=== PATIENT | female | born 1950 | race Caucasian/White ===

== ENCOUNTER → 2020-10-23 13:24 | Outpatient (BNVA) | payer OTHER, SELFPAY | PROVIDERS: Family Provider Nurse Practitioner Family; PCP Nurse Practitioner Family; Visit Provider Nurse Practitioner Family | DX: Z20.828 Contact with and (suspected) exposure to other viral communicable diseases (principal); J06.9 Acute upper respiratory infection, unspecified | CPT/HCPCS: 87635 ==

== ENCOUNTER → 2020-12-10 11:56 | Outpatient (BNVA) | payer MEDICARE, OTHER, SELFPAY | PROVIDERS: Family Provider Nurse Practitioner Family; Visit Provider Family Medicine | DX: Z86.39 Personal history of other endocrine, nutritional and metabolic disease (principal) | CPT/HCPCS: 80053; 80061; 85025 ==

== ENCOUNTER → 2021-01-21 17:04 | Outpatient (BNVA) | payer MEDICARE, SELFPAY | PROVIDERS: Family Provider Nurse Practitioner Family; Visit Provider Family Medicine | DX: M25.541 Pain in joints of right hand (principal); M25.542 Pain in joints of left hand; M19.90 Unspecified osteoarthritis, unspecified site | CPT/HCPCS: 86038; 86431 ==

== ENCOUNTER 2021-02-15 14:35 | Outpatient (CLI) | payer MEDICARE, OTHER, SELFPAY ==
--- NOTE | 2021-02-15 14:38 | MM_ITS ---
WS: [id number] BILATERAL DIGITAL SCREENING MAMMOGRAPHY WITH CAD CLINICAL INFORMATION: SCREENING HISTORY: Screening mammogram. No current complaints. COMPARISON: TECHNIQUE: Bilateral CC and MLO views. FINDINGS: Scattered fibroglandular densities bilaterally. No suspicious focal mass, asymmetry, calcifications, or architectural distortion. No evidence of malignancy. MM/[place] [id number] IMPRESSION: BI-RADS: 1-Negative FOLLOW UP: 1 Year Follow-up Recommend return to annual screening mammography.
== END 2021-02-15 14:36 | disposition home or self-care (01) ==
PROVIDERS: PCP Family Medicine; Visit Provider Family Medicine
DX: Z12.31 Encounter for screening mammogram for malignant neoplasm of breast (principal)
CPT/HCPCS: 77067

== ENCOUNTER → 2021-07-01 11:42 | Outpatient (BNVA) | payer MEDICARE, OTHER, SELFPAY | PROVIDERS: PCP Family Medicine; Visit Provider Family Medicine | DX: Z86.39 Personal history of other endocrine, nutritional and metabolic disease (principal) | CPT/HCPCS: 80053; 80061; 85025 ==

== ENCOUNTER → 2021-07-17 09:46 | Outpatient (BNVA) | payer MEDICARE, SELFPAY | PROVIDERS: Family Provider Nurse Practitioner Family; PCP Family Medicine; Visit Provider Nurse Practitioner Family | DX: R53.83 Other fatigue (principal) | CPT/HCPCS: 82306; 82607 ==

== ENCOUNTER 2022-01-13 06:00 | Outpatient (RCR) | payer MEDICARE, SELFPAY | END 2022-01-27 23:59 | disposition home or self-care (01) | LOC: TPT 06:00 | PROVIDERS: PCP Family Medicine; Referring Provider Family Medicine; Visit Provider Family Medicine | DX: Z47.1 Aftercare following joint replacement surgery (principal); Z96.642 Presence of left artificial hip joint | CPT/HCPCS: 97110; 97161 ==

== ENCOUNTER → 2022-01-27 15:25 | Outpatient (BNVA) | payer MEDICARE, SELFPAY | PROVIDERS: PCP Family Medicine; Visit Provider Nurse Practitioner Family | DX: L03.116 Cellulitis of left lower limb (principal); Z96.642 Presence of left artificial hip joint | CPT/HCPCS: 87070; 87075; 87205 ==

== ENCOUNTER 2022-01-28 06:00 | Outpatient (RCR) | payer MEDICARE, SELFPAY | END 2022-02-27 23:59 | disposition home or self-care (01) | LOC: TPT 06:00 | PROVIDERS: PCP Family Medicine; Referring Provider Family Medicine; Visit Provider Family Medicine | DX: Z47.1 Aftercare following joint replacement surgery (principal); Z96.642 Presence of left artificial hip joint | CPT/HCPCS: 97110 ==

== ENCOUNTER 2022-02-28 06:00 | Outpatient (RCR) | payer MEDICARE, SELFPAY | END 2022-03-29 23:59 | disposition home or self-care (01) | LOC: TPT 06:00 | PROVIDERS: PCP Family Medicine; Referring Provider Family Medicine; Visit Provider Family Medicine | DX: Z47.1 Aftercare following joint replacement surgery (principal); Z96.642 Presence of left artificial hip joint | CPT/HCPCS: 97110 ==

== ENCOUNTER → 2023-03-20 11:09 | Outpatient (BNVA) | payer MEDICARE, SELFPAY | PROVIDERS: PCP Family Medicine; Visit Provider Family Medicine | DX: Z86.39 Personal history of other endocrine, nutritional and metabolic disease (principal); E78.5 Hyperlipidemia, unspecified | CPT/HCPCS: 80053; 80061; 84443; 85025 ==

== ENCOUNTER 2023-09-11 12:36 | Outpatient (CLI) | payer MEDICARE, SELFPAY ==
--- NOTE | 2023-09-11 12:58 | MM_ITS ---
WS: [id number] BILATERAL SCREENING DIGITAL TOMOSYNTHESIS MAMMOGRAM WITH CAD HISTORY: screening mammogram COMPARISON: 02/15/2021 and 08/12/2019 Bilateral CC and MLO views with tomosynthesis and synthetic mammography submitted. Computer aided det ection analyzed. Breast composition: There are scattered areas of fibroglandular density. No suspicious masses, microc alcifications or architectural distortion. IMPRESSION: MM/[place] [id number] BI-RADS: 1-Negative FOLLOW UP: 1 Year Follow-up
== END 2023-09-11 12:37 | disposition home or self-care (01) ==
PROVIDERS: PCP Family Medicine; Visit Provider Family Medicine
DX: Z12.31 Encounter for screening mammogram for malignant neoplasm of breast (principal); E78.5 Hyperlipidemia, unspecified; F41.9 Anxiety disorder, unspecified; Z79.899 Other long term (current) drug therapy
CPT/HCPCS: 77063; 77067; 80053; 80061; 84443

== ENCOUNTER → 2024-01-11 09:00 | Outpatient (BNVA) | payer MEDICARE, SELFPAY | PROVIDERS: PCP Family Medicine; Visit Provider Nurse Practitioner Family | DX: F41.9 Anxiety disorder, unspecified (principal); E78.5 Hyperlipidemia, unspecified; E55.9 Vitamin D deficiency, unspecified | CPT/HCPCS: 80053; 80061; 82306; 84443; 85025 ==

== ENCOUNTER 2024-01-29 11:08 | Emergency (ER) | payer MEDICARE, SELFPAY ==
[2024-01-29 11:16] VITALS: BP 119/78; PULSE 76; RESP 18; TEMP 36.5; O2SAT 95
[2024-01-29] MEDS: orphenadrine 30 mg/mL Inj 2 mL 60 MG IM (13:25)
[2024-01-29] MEDS: dexamethasone 10 mg/mL INJ IM (13:26)
[2024-01-29] MEDS: ondansetron 2 mg/ML SDV 2 mL 4 MG IVP (13:27)
[2024-01-29 13:30] VITALS: RESP 17
[2024-01-29] MEDS: morphine 4 mg/mL SDV 1 mL IVP (13:30)
[2024-01-29] MEDS: ketorolac 30 mg/mL INJ 15 MG IVP (13:32)
--- NOTE | 2024-01-29 13:45 | PC.NURSE ---
medications were given to patient late due to medication being ordered while patient while pt was in the waiting room and not having a room so IV could be inserted.
--- NOTE | 2024-01-29 14:09 | ED_ITS ---
HPI - Extremity Problem General: Chief complaint: Extremity Injury, Lower Stated complaint: back pain,sob Time Seen by Provider: 01/29/24 11:09 Source: patient Mode of arrival: ambulatory History of Present Illness: 73-year-old female presents emergency ro om complaining of right hip pain. However when I asked her to localize the pain she refers more to the SI joint. She has an MRI scheduled. No recent trauma or fall. It is worse when she is walking or weightbearing. Pain radiates through the buttock into the hip but not into the right leg specifically. She has not had any numbness in the perineal area. No urinary retention or fecal incontinence. The stated complaint in the summary it mentions back pain and shortness of breath she did not relate any shortness of breath to me. Onset (ago): day(s) Pain Consistency: constant Quality: sharp Relieving factors: rest Exacerbating factors: range of motion, weight bearing and walking Associated symptoms: Deny arthralgias, chest pain, fever(s), myalgias, rash or short of breath Review of Systems Const: Denies: fever(s) or chills Card: Denies: chest pain Resp: Denies: dyspnea GI: Denies: abdominal pain : Denies: dysuria, urinary frequency or urinary urgency Musc: Reports: back pain; Denies: neck pain Skin/Breast: Denies: rash PFSH ED PFSH: Medical History Anxiety Surgical History Hx of total knee replacement History of partial hysterectomy Hx of section Family History Other Chronic kidney disease (CKD) Diabetes Social History Smoking and tobacco/nicotine status: current every day tobacco/nicotine user (1 Pack every 2 days) cigarettes Packs smoked per day: 0.5 Second hand smoke exposure: No Alcohol intake: current Alcohol intake frequency: holidays/special occasions only Substance/Drug Use: never Adopted: No Caregiver/support person: No Lives independently: Yes Household members: none Housing: House Marital status: / Number of children: 2 service: No Current occupational status: employed Current occupational exposures/hazards: No Do you think of yourself as: Straight/Heterosexual Current gender identity: Female Physical Exam Const: COMMON NORMALS: no acute distress GENERAL APPEARANCE: cooperative and comfortable ORIENTATION/CONSCIOUSNESS: Yes awake, Yes oriented to person, Yes oriented to place and Yes oriented to time HENMT: COMMON NORMALS: normocephalic, atraumatic and hearing grossly normal bilaterally HEAD & SCALP: normocephalic and atraumatic Resp: COMMON NORMALS: normal respiratory effort, No retractions, No use of accessory muscles and clear to auscultation bilaterally AUSCULTATION: clear to auscultation bilaterally Cardio: COMMON NORMALS: regular rate, regular rhythm and No murmurs present (Cardio) RATE: regular rate RHYTHM: regular rhythm GI: COMMON NORMALS: Soft to palpation and No hepatosplenomegaly present AUSCULTATION: Yes normoactive bowel sounds PALPATION: Yes Soft to palpation, No Tenderness to palpation present (GI), No Guarding due to palpation present (GI) and Yes No hepatosplenomegaly present Extremity: COMMON NORMALS: normal to inspection, capillary refill normal, no clubbing, cyanosis or edema, no calf tenderness and no pedal edema Neuro: SENSORIUM/ORIENTATION: Yes oriented to person, Yes oriented to place and Yes oriented to time Skin: COMMON NORMALS: no rashes or lesions noted GENERAL SKIN EXAM: no rashes or lesions noted Course Vital Signs: Vital signs: Vital Signs Temperature 97.7 F 01/29/24 11:16 Pulse Rate 72 01/29/24 14:43 Respiratory Rate 17 01/29/24 13:30 Blood Pressure 122/68 01/29/24 14:43 Pulse Oximetry 93 01/29/24 14:43 Oxygen Delivery Me thod Room Air 01/29/24 11:16 MDM - Extremity (Nontraumatic) Medical Decision Making No trauma or fall recently. She has an MRI scheduled. I am able to flex and internally externally rotate the hip on the right with no significant exacerbation of pain. Improvement of pain with medications given. Will discharge the patient home with prednisone taper diclofenac hydrocodone and muscle relaxer. She should follow-up with the MRI as planned. Return to the emergency room if symptoms change or worsen Medical Records I reviewed the patient's medical records. No radiology studies performed this visit Discharge Plan Discharge Patient Disposition: Home Clinical Impression: Lumbar disc disease with radiculopathy Condition: Stable Prescriptions: New tizanidine 4 mg tablet 4 mg PO Q6H PRN (Reason: muscle spasticity) Qty: 20 0RF Rx Instructions: do not exceed 3 doses per 24 hrs hydrocodone-acetaminophen 5-325 mg tablet 1 tab PO Q6H PRN (Reason: pain) Qty: 10 0RF prednisone 20 mg tablet 20 mg PO TID Qty: 15 0RF Rx Instructions: 1 p.o. 3 times daily x3 days, 1 p.o. twice daily x2 days, 1 p.o. daily x2 days Discontinued ketorolac 10 mg tablet 10 mg PO QID PRN (Reason: pain) 5 Days Qty: 20 0RF No Action tumeric PO DAILY vitamin E (dl, acetate) 400 unit capsule 400 unit PO DAILY Kishore Mag Zinc Plus D3 333 mg-133 unit -133 mg-5 mg tablet 1 tab PO DAILY diphenhydramine HCl [Allergy Relief(diphenhydramin)] 25 mg tablet 25 mg PO ONCE PRN (Reason: allergy symptoms) triamcinolone acetonide 0.1 % cream 1 applic topical DAILY 14 Days Qty: 80 0RF mupirocin 2 % ointment 1 applic topical TID Qty: 22 0RF prednisone 20 mg tablet 20 mg PO DAILY alprazolam 2 mg tablet 2 mg PO BID Qty: 60 0RF olopatadine [Pataday Twice Daily Relief] 0.1 % drops 1 drp ophthalmic (eye) BID Qty: 5 0RF Rx Instructions: separate doses by at least 6-8 hours rosuvastatin [Crestor] 5 mg tablet 5 mg PO DAILY Qty: 30 5RF levocetirizine [Xyzal] 5 mg tablet 5 mg PO .QHS 90 Days Qty: 90 1RF lidocaine 5 % adhesive patch,medicated 2 patch topical DAILY 30 Days Qty: 60 1RF Rx Instructions: leave on most painful area for up to 12 hrs fexofenadine-pseudoephedrine [Radha-D 12 Hour] 60-120 mg tablet extended release 12 hr 1 tab PO Q12H PRN (Reason: nasal congestion) Qty: 20 0RF ondansetron HCl 8 mg tablet 8 mg PO Q8H PRN (Reason: nausea and vomiting) Qty: 30 3RF naloxone 4 mg/actuation spray,non-aerosol 4 mg intranasal Q2M Qty: 2 0RF Rx Instructions: spray 1 dose into ONE nostril; alternate nostrils w each dose until help arrives celecoxib 200 mg capsule See Rx Instructions .ROUTE .COMPLEX Qty: 60 2RF Dose Instruction: TAKE ONE CAPSULE BY MOUTH TWICE DAILY. Rx Instructions: TAKE ONE CAPSULE BY MOUTH TWICE DAILY. hydrocodone-acetaminophen 5-325 mg tablet 1 tab PO Q8H PRN (Reason: pain) 30 Days Qty: 90 0RF tizanidine 4 mg tablet 4 mg PO Q8H PRN (Reason: muscle spasticity) Qty: 90 0RF diclofenac sodium 75 mg tablet,delayed release (DR/EC) 75 mg PO Q12H PRN (Reason: pain) Qty: 60 2RF Discharge Orders: Discharge ED (Routine); Ordered 01/29/24 Ordered By: Adrian Nichols Referrals: Dipti Nelson MD [Primary Care Provider] - Discharge Diet: Usual diet Discharge Activity: Resume usual activity Patient Instructions: Opioid Safety, Pain Management Activity Restrictions/Additional Instructions: Thank you for choosing [facility] for your healthcare needs today. Please realize this is an emergency room and that we are providing you with a medical screening exam and this may not be complete and all inclusive of all the testing and or work up that you may need to determine your ailment or severity of your illness. It is very important that you follow up as instructed or that you return to the Emergency Department should you have concerns or if your condition changes or worsens in any way. You were given prescription today for prednisone taper to begin tomorrow. You are also given refill on hydrocodone and tizanidine. You should use diclofenac in place of ketorolac. Recommend you follow-up with the MRI as scheduled. Coding Level of Care Code ED Supervisor Shuttle Veneering for Jian Magaña
[2024-01-29 14:43] VITALS: BP 122/68; PULSE 72; O2SAT 93
== END 2024-01-29 14:45 | disposition home or self-care (01) ==
PROVIDERS: Emergency Provider Family Medicine; PCP Family Medicine
DX: M51.16 Intervertebral disc disorders with radiculopathy, lumbar region (principal); F17.210 Nicotine dependence, cigarettes, uncomplicated
CPT/HCPCS: 96372; 96374; 96375; 99284; J1100; J1885; J2270; J2360; J2405

== ENCOUNTER 2024-02-11 15:56 | Outpatient (CLI) | payer MEDICARE, SELFPAY ==
--- NOTE | 2024-02-11 16:00 | MR_ITS ---
WS: [id number] MRI LUMBAR SPINE NONCONTRAST TECHNIQUE: Sagittal T1, T2 and STIR imaging. Axial T1 and T2 imaging. CLINICAL INFORMATION: chronic LBP with bilateral sciatica COMPARISON: None. FINDINGS: Mild lumbar curve. No acute compression. Lobulated disc extrusion RIGHT L5-S1. L1-L2: Mild facet arthropathy. L2-L3: Mild facet arthropathy. Spinal canal and foramen are patent. L3-L4: Mild facet arthropathy. Mild RIGHT and no significant LEFT foraminal narrowing. Spinal canal i s patent. L4-L5: Slight anterolisthesis. Mild annular bulging. Slight narrowing of the RIGHT subarticular reces s. Moderate facet arthropathy with small facet effusions. Foramen are patent L5-S1: Lobulated RIGHT subarticular disc extrusion L5-S1 impinges the traversing RIGHT S1 nerve root in the subarticular recess. Mild to moderate narrowing of the thecal sac. Moderate RIGHT foraminal na rrowing with impingement on the proximal exiting RIGHT L5 nerve root. Disc material measures approxim ately 12 x 4.5 mm craniocaudal by AP Visualized pelvic bony structures: Normal. Paravertebral soft tissues: Normal. IMPRESSION: 1. Lobulated RIGHT subarticular disc extrusion L5-S1 impinges the traversing RIGHT S1 nerve root in the subarticular recess. Mild to moderate narrowing of the thecal sac. Moderate RIGHT foraminal narro wing with impingement on the proximal exiting RIGHT L5 nerve root. Disc material measures approximate ly 12 x 4.5 mm craniocaudal by AP. Recommend spine surgery consultation. 2. Slight anterolisthesis L4 on L5 with mild disc bulging. This impinges the traversing RIGHT L5 ner ve root in the subarticular recess. 3. Moderate facet arthropathy L4-5 with small facet effusions compatible with synovitis likely degen erative. Mild facet synovitis L5-S1.
== END 2024-02-11 15:57 | disposition home or self-care (01) ==
LOC: RAD 15:57
PROVIDERS: PCP Family Medicine; Visit Provider Nurse Practitioner Family
DX: M51.16 Intervertebral disc disorders with radiculopathy, lumbar region (principal); M48.061 Spinal stenosis, lumbar region without neurogenic claudication; M47.896 Other spondylosis, lumbar region; M65.88 Other synovitis and tenosynovitis, other site; G89.29 Other chronic pain
CPT/HCPCS: 72148

== ENCOUNTER → 2024-03-10 13:35 | Outpatient (BNVA) | payer MEDICARE, SELFPAY | PROVIDERS: PCP Family Medicine; Referring Provider Nurse Practitioner Family; Visit Provider Orthopaedic Surgery | DX: M54.9 Dorsalgia, unspecified (principal) | CPT/HCPCS: 72110; 99204 ==

== ENCOUNTER → 2024-04-01 13:43 | Outpatient (BNVA) | payer MEDICARE, SELFPAY | PROVIDERS: PCP Family Medicine; Visit Provider Family Medicine | DX: M25.512 Pain in left shoulder (principal); M25.511 Pain in right shoulder; M19.012 Primary osteoarthritis, left shoulder | CPT/HCPCS: 73030 ==

== ENCOUNTER 2024-04-06 06:00 | Outpatient (RCR) | payer MEDICARE, SELFPAY | END 2024-04-29 23:59 | disposition home or self-care (01) | LOC: TPT 06:00 | PROVIDERS: Visit Provider Orthopaedic Surgery | DX: M54.50 Low back pain, unspecified (principal) | CPT/HCPCS: 97110; 97162 ==

== ENCOUNTER → 2024-04-21 13:55 | Outpatient (BNVA) | payer MEDICARE, SELFPAY | PROVIDERS: PCP Family Medicine; Visit Provider Orthopaedic Surgery | DX: M43.16 Spondylolisthesis, lumbar region (principal) | CPT/HCPCS: 99213 ==

== ENCOUNTER 2024-04-30 06:00 | Outpatient (RCR) | payer MEDICARE, SELFPAY | END 2024-05-19 23:59 | disposition home or self-care (01) | LOC: TPT 06:00 | PROVIDERS: PCP Family Medicine; Visit Provider Orthopaedic Surgery | DX: M54.50 Low back pain, unspecified (principal) | CPT/HCPCS: 97110 ==

== ENCOUNTER 2024-05-02 11:49 | Outpatient (CLI) | payer MEDICARE, SELFPAY ==
--- NOTE | 2024-05-02 12:15 | MR_ITS ---
WS: [id number] MRI RIGHT SHOULDER NONCONTRAST TECHNIQUE: Sagittal T2, coronal T1, T2 and proton density imaging. Axial gradient PDE imaging. CLINICAL INFORMATION: shoulder pain COMPARISON: None. FINDINGS: Osteopenia. Advanced degenerative arthritis AC joint with downsloping of the acromion and narrowing o f the subacromial space. Subacromial spurring. Moderate joint effusion. Fluid in the AC joint. Subacr omial subdeltoid fluid. High-grade complete tear of the supraspinatus with retraction to the level of the glenohumeral joint. Diffuse chronic thinning with high-grade tear involving the infraspinatus with some intact fibers di stally. High-grade tear with T2 signal normality extends to the myotendinous junction. Atrophy of the supraspinatus and infraspinatus. Teres minor appears intact. Subscapularis appears intact. Biceps tendon appears intact within the bic ipital groove. Advanced degenerative narrowing of the glenohumeral articulation. Chronic thinning of the glenoid labrum. Normal bone marrow signal in the glenoid. Tiny intra-articular biceps tendon. Bic eps labral anchor appears intact. Fluid in the subcoracoid bursa. MR/MR shoulder RT wo con* [id number] IMPRESSION: 1. Advanced degenerative arthritis AC joint with narrowing of the subacromial space. 2. High-grade complete tear of the supraspinatus with retraction to the level of the glenohumeral joint. 3. High-grade tear of the infraspinatus with some intact fibers distally. Intr asubstance tear extends to the myotendinous junction. 4. Teres minor and subscapularis tendons appears intact. 5. Biceps tendon is diminutive but intact within the bicipital groove. Tiny in tra-articular biceps tendon. 6. Advanced degenerative narrowing of the glenohumeral articulation with thinn ing of the glenoid labrum. 7. Moderate joint effusion with fluid in the subcoracoid bursa.
== END 2024-05-02 11:50 | disposition home or self-care (01) ==
LOC: RAD 11:50
PROVIDERS: PCP Family Medicine; Visit Provider Family Medicine
DX: M25.511 Pain in right shoulder (principal); M19.011 Primary osteoarthritis, right shoulder; M75.122 Complete rotator cuff tear or rupture of left shoulder, not specified as traumatic; M25.411 Effusion, right shoulder; M25.711 Osteophyte, right shoulder
CPT/HCPCS: 73221

== ENCOUNTER → 2024-05-17 14:43 | Outpatient (BNVA) | payer MEDICARE, SELFPAY | PROVIDERS: PCP Family Medicine; Referring Provider Family Medicine; Visit Provider Student in an Organized Health Care Education/Training Program | DX: M19.011 Primary osteoarthritis, right shoulder; M25.711 Osteophyte, right shoulder; M75.121 Complete rotator cuff tear or rupture of right shoulder, not specified as traumatic | CPT/HCPCS: 99204 ==

== ENCOUNTER 2024-06-15 09:59 | Day surgery (SDC) | payer MEDICARE, SELFPAY ==
[2024-06-15] VITALS (8 sets, daily range): BP systolic 115–155; BP diastolic 54–91; PULSE 70–93; RESP 16–18; TEMP 36.1–36.6; O2SAT 94–97; BMI 31.2
[2024-06-15] MEDS: ketorolac 30 mg/mL INJ IVP (10:45)
--- NOTE | 2024-06-15 11:04 | W.PM.OPSUD ---
Surgery/Procedure H&P Update DATE OF PROCEDURE: June 15, 2024 DATE H&P PERFORMED: 05/16/24 H&P UPDATE INFORMATION: I have reviewed H&P completed within last 30 days, I have examined patient prior to procedure and No changes to prior documentation PREOP DIAGNOSIS: Right shoulder subacromial impingement, AC joint arthritis, rotator cuff te PRIMARY INDICATION FOR PROCEDURE: Right shoulder subacromial impingement, AC joint arthritis, rotator cuff tear, biceps tendinitis PLANNED PROCEDURE: Operation Date: 06/15/24 12:15 Proposed Procedures p Shoulder Arthroscopy(Right) - David Perez DO s Rotator Cuff Repair - Arthroscopy versus debridement(Right) - DO ojse Warner Subacromial Decompression(Right) - DO jose Warner AC Joint Resection(Right) - DO jose Warner Possible Bicep Tenotomy versus tenodesis(Right) - DO jose Warner Possible +Subacromial Ballon Spacer(Right) - David Perez DO
[2024-06-15] MEDS: acetaminophen 1,000 MG/100 ML PIGGYBACK 400 MG IV (11:11)
[2024-06-15] MEDS: sodium chloride 0.9% 1,000 ML 30 ML IV (11:12)
--- NOTE | 2024-06-15 12:00 | P.ANESASSM_ITS ---
Pre-Anesthetic Assessment Height/Weight: Height 1.52 m Weight 72.575 kg Temp Pulse Resp BP Pulse Ox O2 Del Method 97.4 F L 93 17 155/91 97 Room Air 06/15/24 10:45 06/15/24 10:45 06/15/24 10:45 06/15/24 10:45 06/15/24 10:45 06/15/24 10:45 Preop Diagnosis: Right shoulder subacromial impingement, AC joint arthritis, rotator cuff te Operation Date: 06/15/24 12:15 Proposed Procedures p Shoulder Arthroscopy(Right) - David Carteret, DO s Rotator Cuff Repair - Arthroscopy versus debridement(Right) - David Carteret, DO s Subacromial Decompression(Right) - David Ana, DO s AC Joint Resection(Right) - David Ana, DO s Possible Bicep Tenotomy versus tenodesis(Right) - David Carteret, DO s Possible +Subacromial Ballon Spacer(Right) - David Ana, DO Familial anesthetic complications: PONV Was Beta Micah taken within 24 hours: N/A Was Clonidine taken within 24 hours: N/A Last intake: Intake Last Liquid Date 06/14/24 Last Liquid Time 23:55 Last Solid Date 06/14/24 Last Solid Time 18:30 Social No alcohol and No tobacco Exam alert, oriented x 3, clear to auscultation bilaterally and regular rate & rhythm Airway Mallampati: Class II Dentition: full Comments: Comments: receding mandible Anesthetic Plan ASA status: 3 Anesthesia: General and Regional (specify below) Risk of > 500 ml blood loss (7ml/kg in children): No Medications/Allergies Home Medications Medication Instructions Recorded Confirmed Last Taken Type calcium carb 333 mg-vit D3 133 1 tab PO DAILY 12/06/20 06/15/24 06/11/24 History unit-mag ox 133 mg-zinc oxide 5 mg tab (Kishore Mag Zinc Plus D3) diphenhydramine HCl 25 mg tablet 25 mg PO ONCE PRN allergy symptoms 12/06/20 06/14/24 06/13/24 20:00 History (Allergy Relief (diphenhydramine)) levocetirizine 5 mg tablet (Xyzal) 5 mg PO .QHS 90 days #90 tabs 08/27/23 06/14/24 Unknown Rx hydrocodone 5 mg-acetaminophen 325 1 tab PO Q6H PRN pain #10 tabs 01/29/24 05/17/24 Unknown Rx mg tablet tizanidine 4 mg tablet 4 mg PO Q6H PRN muscle spasticity 01/29/24 06/14/24 06/11/24 Rx #20 tabs diclofenac sodium 75 mg 75 mg PO Q12H PRN pain #60 tabs 02/08/24 06/15/24 06/11/24 Rx tablet,delayed release celecoxib 200 mg capsule See Rx Instructions .Route 03/10/24 06/15/24 06/11/24 Rx .COMPLEX #60 caps rosuvastatin 5 mg tablet (Crestor) 5 mg PO DAILY #30 tabs 03/10/24 06/15/24 06/11/24 Rx tizanidine 4 mg tablet 4 mg PO Q8H PRN muscle spasticity 04/04/24 05/17/24 Unknown Rx #90 tabs hydrocodone 5 mg-acetaminophen 325 1 tab PO Q8H PRN pain 30 days #90 05/09/24 06/14/24 06/13/24 20:00 Rx mg tablet tabs alprazolam 2 mg tablet 2 mg PO BID #60 tabs 05/16/24 06/15/24 06/15/24 Rx coenzyme Q10 100 mg capsule (Co 100 mg PO DAILY 06/14/24 06/14/24 06/11/24 History Q-10) Allergies Allergy/AdvReac Type Severity Reaction Status Date / Time adhesive Allergy Intermediate ALGY-Bliste Verified 05/17/24 15:03 r Current Medications Generic Name Dose Route Start Last Admin Trade Name Freq PRN Reason Stop Dose Admin Sodium Chloride 1,000 mls @ 30 mls/hr 06/15/24 10:30 06/15/24 11:12 Sodium Chloride 0.9% IV 06/16/24 10:29 30 mls/hr .Q24H MARY Administration PFSH Anesthesia Medical History Anxiety Surgical History Hx of total knee replacement History of partial hysterectomy Hx of section Family History Other Chronic kidney disease (CKD) Diabetes Social History Smoking and tobacco/nicotine status: current every day tobacco/nicotine user cigarettes Packs smoked per day: 0.5 Second hand smoke exposure: No Alcohol intake: current Alcohol intake frequency: holidays/special occasions only Substance/Drug Use: never Adopted: No Caregiver/support person: No Lives independently: Yes Household members: none Housing: House Marital status: / Number of children: 2 service: No Current occupational status: employed Current occupational exposures/hazards: No Do you think of yourself as: Straight/Heterosexual Current gender identity: Female Data Anesthesia Cardiac Studies: No Data to Display
--- NOTE | 2024-06-15 12:01 | ANES.PROC ---
Anesthesia Procedures Procedure/Date: 06/15/24 Nerve Block ^: Nerve Block 1: Main Anesthesia: general anesthesia Time Out Performed: Yes Consent: requested by attending/covering physician, from patient, from other, risks and benefits reviewed and patient agrees to proceed Nerve block location: interscalene (R) Anesthesia monitors applied: pulse oximetry, EKG, BP cuff and oxygen Nerve block position: semi sitting Anesthetic Used: ropivicaine 0.5% (20 ml) and with decadron (4 mg) Ultrasound used to: recognize landmarks, visualize and ID brachial plexus, in supraclavicular region and visualize and ID interscalene groove Nerve Stimulator Used?: No Interscalene/Femoral BLK: 2 stimuplex 22 g needle used for position and inplane approach, visualize local anesthetic spread and no vascular puncture identified Injection: neg aspiration of heme Patient Tolerated Procedure: well Complications: none
[2024-06-15] MEDS: ceFAZolin 2,000 MG in sodium chloride 0.9% (plus) 50 ML 100 MG IV (13:02)
--- NOTE | 2024-06-15 15:31 | W.PM.BPON ---
Date of Procedure: [06/15/2024] Surgeon: David Perez DO Sawmill Equipment Operator(s): None Procedure(s) performed: Right shoulder diagnostic and surgical arthroscopy with rotator cuff cable reconstruction (for massive rotator cuff tear) Right shoulder diagnostic and surgical arthroscopy with biceps tenodesis Right shoulder diagnostic and surgical arthroscopy with labral debridement Right shoulder diagnostic and surgical arthroscopy with glenohumeral joint chondroplasty Right shoulder diagnostic and surgical arthroscopy with AC joint resection Right shoulder diagnostic and surgical arthroscopy with subacromial decompression Right shoulder diagnostic and surgical arthroscopy with subacromial balloon spacer Findings of the procedure(s): Patient found to have massive rotator cuff tear was able to undergo a cable reconstruction for partial repair given the massive a repairable mass of the rotator cuff selected to place a subacromial balloon spacer she did undergo biceps tenodesis labral debridement glenohumeral joint chondroplasty AC resection subacromial decompression procedure went as planned without issues or complications. Taken to PACU in stable condition. Estimated blood loss: 15 mL Specimen(s) removed: None Post-operative diagnosis: Right shoulder massive rotator cuff tear of the supra and infraspinatus tendon, simple acromial impingement, AC joint arthritis glenohumeral joint chondromalacia grade 3- 4, circumferential labral tearing, biceps tendinitis with SLAP tear
--- NOTE | 2024-06-15 15:36 | PM.OP ---
Operative Report Date of procedure: June 15, 2024 Surgeon: David Perez DO Procedure: Preoperative diagnosis: Right shoulder subacromial impingement, AC joint arthritis, rotator cuff tear, biceps tendinitis Post-op diagnosis: Right shoulder massive rotator cuff tear of the supra and infraspinatus tendon, simple acromial impingement, AC joint arthritis glenohumeral joint chondromalacia grade 3- 4, circumferential labral tearing, biceps tendinitis with SLAP tear Procedure done: Right shoulder diagnostic and surgical arthroscopy with rotator cuff cable reconstruction (for massive rotator cuff tear) Right shoulder diagnostic and surgical arthroscopy with biceps tenodesis Right shoulder diagnostic and surgical arthroscopy with labral debridement Right shoulder diagnostic and surgical arthroscopy with glenohumeral joint chondroplasty Right shoulder diagnostic and surgical arthroscopy with AC joint resection Right shoulder diagnostic and surgical arthroscopy with subacromial decompression Right shoulder diagnostic and surgical arthroscopy with subacromial balloon spacer Surgeon: David Perez DO Estimated blood loss: 15mL IV fluids: See anesthesia record Implants: Arthrex 4.75 swivel lock x2 Arthrex loop and tack biceps tenodesis Arthrex scorpion and suture tape [employer] space in space system (subacromial balloon spacer) Complications: None Condition: stable Disposition: same day Brief History: Patient been seen and worked up in the outpatient setting for right shoulder pain.? Pt had an MRI which showed findings below.? Patient's failed conservative treatment and has weakness.? We talked about treatment options far as nonoperative and operative intervention..? We talked about risk benefits complication alternatives surgical nonsurgical treatment options.? Understanding risk of surgery pt agrees to proceed with surgical intervention.? All questions have been answered at this time.? Patient elects proceed with surgery and consent obtained in office. MR/MR shoulder RT wo con* [id number] IMPRESSION: 1. Advanced degenerative arthritis AC joint with narrowing of the subacromial space. 2. High-grade complete tear of the supraspinatus with retraction to the level of the glenohumeral joint. 3. High-grade tear of the infraspinatus with some intact fibers distally. Intrasubstance tear extends to the myotendinous junction. 4. Teres minor and subscapularis tendons appears intact. 5. Biceps tendon is diminutive but intact within the bicipital groove. Tiny intra-articular biceps tendon. 6. Advanced degenerative narrowing of the glenohumeral articulation with thinning of the glenoid labrum. 7. Moderate joint effusion with fluid in the subcoracoid bursa. Procedure: Patient seen evaluated in the preoperative holding area.? Consent reviewed and signed with patient.? Once again reviewed patient's MRI results as well as? planned surgical intervention.? Correct extremity marked.? Patient seen evaluated by anesthesia department received regional anesthesia.? Once ready for surgery was taken back to the operative suite.? Patient then subsequently underwent anesthesia per the anesthesia department was transported onto the OR table.? Patient was then placed into a lateral decubitus position with a beanbag and was appropriately secured to the bed.? All bony prominences well-padded.? Patient then had the right upper extremity was then prepped and draped in standard orthopedic fashion.? Patient received appropriate preoperative antibiotics.? Final timeout performed. The right upper extremity was then held in hanging from traction utilizing sterile technique.? Next started with standard diagnostic and surgical arthroscopy with posterior portal position introduced arthroscope into the glenohumeral joint.? Visualized the glenohumeral joint I then introduced a spinal needle within the?rotator?cuff?interval to confirm appropriate anterior portal placement.? Once this was confirmed I then made my small incision and then introduced my arthroscopic shaver into the glenohumeral joint.? After flushing the joint fluid, was clearly evident patient had biceps tendon tearing as well as Superior labral tear. Patient had appreciable unstable biceps anchor most pronounced in the superior labrum. Given there appears to be healthy intra-articular tendon plan was for an intra-articular biceps tenodesis at the superior portion as it enters the intertubercular groove. Thermal wand introduced into the rotator interval. I then release of the rotator interval to have appropriate visualization and the ability to perform biceps tenodesis. At this point I established a purple passport cannula which was introduced. Next I performed an Arthrex loop and tack biceps tenodesis. Passer was then made around the tendon luggage tag stitch around and then thru the tendon per Arthrex technique guide recommendations, I then utilized a thermal wand to release the biceps tendon at the anchor to perform with tenotomy. I then loaded with suture onto an Arthrex 4.75 swivel lock suture anchor. A punch was then placed in appropriate position at the entry point into the intertubercular groove just superior to the subscapularis tendon. Punch was then introduced to the appropriate depth. The suture loaded on the swivel lock was then advanced held under appropriate tension and shoulder lock anchor was then advanced and had excellent fixation. Excess suture was then cut biceps tenodesis was complete. I then utilized a thermal wand to seal the edges of the superior labrum. ? Next I evaluated the subscapularis tendon which was intact and no evidence of tear. ?Next there was significant labral tearing at biceps anchor and circumferential.? ? I then subsequently utilized a a arthroscopic shaver and thermal wand to perform a labral debridement.? This point time I then visualized the glenohumeral joint.? The glenohumeral joint was found to have grade 3-4 chondromalacia throughout. I subsequently utilized an arthroscopic shaver and thermal wand to perform glenohumeral joint chondroplasty to take articular cartilage to stable articular tissue. Infrapatellar pouch was free of loose bodies from viewing the posterior portal.? Next a visualized the?rotator?cuff?superiorly and there was found to be a massive rotator cuff tear. I utilized a spinal needle to martha this location.?? This completed my work within the glenohumeral joint all fluid was suctioned free of the joint.? ?Next I reintroduced the arthroscope posteriorly.? And went to the subacromial space.? I established my lateral working portal at the site of which my spinal needle was marking of the?rotator?cuff?tear.? Thermal wand was then introduced laterally and then I subsequently performed extensive bursectomy of the subacromial space.? Patient had a large anterior bone spur.? At this point time I proceeded with my AC joint resection thermal wand was used and track to the anterior edge of the acromion and then tracked all the way to the AC joint.? Once identified the AC joint this was very arthritic in nature.? Thermal wand was placed anteriorly to establish appropriate plane for AC joint resection.? Once appropriate margins and anterior inferior and anterior capsule was released I then introduced arthroscopic shaver and a bur and performed AC joint resection of both the acromion to cope plane at the AC joint and a distal clavicle resection was then performed totaling 1 cm in size and was confirmed.? This completed my AC joint resection and I then introduced the arthroscopic shaver laterally while continuing to view posteriorly.? I then performed an acromioplasty to complete my subacromial decompression prior to addressing the rotator cuff tear. Next at this point in time I evaluated the rotator cuff tear after the AC joint resection and subacromial decompression. At this point in time it was clearly evident the rotator cuff tear was massive and unable to have any tendon excursion to reattach to the rotator cuff footprint this was retracted to the level of the glenohumeral joint. There was some stable tissue and at this point in time I elected to pursue given the massive tear this would be able to have a full repair but a partial repair of utilizing a rotator cuff cable reconstruction technique. I utilized Arthrex fiber tape and subsequently starting at the midportion of the rotator cuff tear as it was retracted to the level of the glenohumeral joint at the level of the glenoid I then subsequently utilized an Arthrex scorpion suture passer passed the suture tape and subsequently made sequential passes anteriorly with 1 limb and then posteriorly with the other limb to create a running stitch from posterior to anterior this allowed for appropriate pulling over of the rotator cuff cable more over the medial face of the humeral head to allow for a rotator cuff cable suspension and partial repair. Once this was then performed I then utilized the Arthrex punch and punched and loaded the anterior limb of the rotator cuff cable reconstruction suture tape and a 4.75 swivel lock did a punch into the anterior and lateral border to help pull forward this rotator cable and then subsequently punched in places 4.75 swivel lock with excellent purchase and fixation I then subsequently performed the same for the posterior lateral portal ankle up to once again try and pull part of the rotator cuff over for a partial repair for this rotator cuff cable reconstruction. This was subsequently punched loaded on 4.75 swivel lock in the posterior limb of the suture was then loaded punched and 4.75 swivel lock was secured and had excellent fixation all excess suture limbs were then subsequently cut and the rotator cuff cable reconstruction was complete. At this point in time given this was an incomplete repair and patient is over the age of 66 with a massive rotator cuff tear I felt as though she would be an excellent candidate for subacromial balloon spacer given I could not get a full repair and clearly would be evident patient would have issues with subacromial bony impingement underneath the surface of the acromion and clavicle. As a result I utilized [employer] in space subacromial balloon system I subsequently made an appropriate measurement selected appropriate sized balloon I then opened up bilateral Booker slightly to accommodate for the subacromial balloon inserting device this was placed into appropriate position to its black line and then the clothing busheler sheath was subsequently removed and the subacromial balloon was exposed I then subsequently filled this up to the appropriate fluid volume per the size and per [employer]opedic subacromial balloon and space protocol this was subsequently insufflated had excellent positioning and at this point in time I utilized the release on the device and the guide was then subsequently removed and subacromial balloon spacer remained in excellent position shoulder was taken through range of motion and balloon had excellent positioning as well as protection of the exposed humeral head superiorly underneath the acromion. This completed the procedure. All fluid was suctioned from the shoulder.? All instruments were removed.? The lateral incision was then closed with nylon stitches.? As well as the portal sites closed with portal nylon stitches.? Xeroform 4 x 4's ABD and tape was then applied to the right shoulder and was placed into a shoulder abduction pillow sling for?rotator?cuff?repair/subacromial balloon/biceps tenodesis.? Patient was then awakened from anesthesia and then taken back to PACU in stable condition.? Patient tolerated procedure without any issues. Disposition: Patient taken back in stable condition recovering well.? Dressings on in place clean dry and intact.? Will be nonweightbearing to the right upper extremity.? Follow?rotator?cuff?repair protocol.? Patient to follow-up with me in the office in 2 weeks.? Patient will receive appropriate discharge instruction as well as pain medication postoperatively.? All questions answered.? We will contact the office for any questions or concerns.
--- NOTE | 2024-06-15 17:00 | ANE.PACU2 ---
Inpatient post-anesthesia follow up: Airway intact: Yes Vital signs: Temperature 97.8 F Pulse Rate 77 Respiratory Rate 18 Blood Pressure 122/80 Pulse Oximetry 95 Oxygen Delivery Me thod Room Air Oxygen Flow Rate 8 Fraction of Inspir ed Oxygen Hydration adequate: Yes Nausea and vomiting: No Pain level: 1 Mental status: Baseline
== END 2024-06-15 17:00 | disposition home or self-care (01) ==
PROVIDERS: PCP Family Medicine; Visit Provider Student in an Organized Health Care Education/Training Program
PROC: (CPT 29805; principal; 2024-06-15 12:15)
PROC: (CPT 29827; 2024-06-15 12:15)
PROC: (CPT 29826; 2024-06-15 12:15)
PROC: 0RSG0ZZ Reposition Right Acromioclavicular Joint, Open Approach (ICD-10-PCS; CPT 29823; 2024-06-15 12:15)
PROC: (CPT 24310; 2024-06-15 12:15)
PROC: (CPT 29823; 2024-06-15 12:15)
DX: M75.101 Unspecified rotator cuff tear or rupture of right shoulder, not specified as traumatic (principal); M25.811 Other specified joint disorders, right shoulder; M19.011 Primary osteoarthritis, right shoulder; M75.21 Bicipital tendinitis, right shoulder; F41.9 Anxiety disorder, unspecified; F17.210 Nicotine dependence, cigarettes, uncomplicated; S43.431A Superior glenoid labrum lesion of right shoulder, initial encounter; M94.211 Chondromalacia, right shoulder; X58.XXXA Exposure to other specified factors, initial encounter
CPT/HCPCS: 29823; 29824; 29826; 29827; 29828; C1713; C1889; J0131; J0690; J1100; J1885; J2250; J2405; J2704; J2795; J3010; J3490; J7030

== ENCOUNTER → 2024-07-26 13:55 | Outpatient (BNVA) | payer MEDICARE, SELFPAY | PROVIDERS: PCP Family Medicine; Visit Provider Physician Assistant | DX: Z98.890 Other specified postprocedural states (principal) | CPT/HCPCS: 99024 ==

== ENCOUNTER 2024-08-02 06:00 | Outpatient (RCR) | payer MEDICARE, SELFPAY | END 2024-08-29 23:59 | disposition home or self-care (01) | LOC: TPT 06:00 | PROVIDERS: Visit Provider Physician Assistant | DX: Z98.890 Other specified postprocedural states (principal) | CPT/HCPCS: 97110; 97140; 97162 ==

== ENCOUNTER → 2024-08-18 13:47 | Outpatient (BNVA) | payer MEDICARE, SELFPAY | PROVIDERS: Visit Provider Family Medicine | DX: E78.5 Hyperlipidemia, unspecified (principal); F41.9 Anxiety disorder, unspecified | CPT/HCPCS: 80053; 80061; 84443; 85025 ==

== ENCOUNTER 2024-08-30 06:00 | Outpatient (RCR) | payer MEDICARE, SELFPAY | END 2024-09-29 23:59 | disposition home or self-care (01) | LOC: TPT 06:00 | PROVIDERS: Visit Provider Physician Assistant | DX: Z98.890 Other specified postprocedural states (principal) | CPT/HCPCS: 97110; 97140 ==

== ENCOUNTER → 2024-09-06 14:45 | Outpatient (BNVA) | payer MEDICARE, SELFPAY | PROVIDERS: PCP Internal Medicine; Visit Provider Physician Assistant | DX: Z98.890 Other specified postprocedural states (principal) | CPT/HCPCS: 99213 ==

== ENCOUNTER 2024-09-30 06:00 | Outpatient (RCR) | payer MEDICARE, SELFPAY | END 2024-10-29 23:59 | disposition home or self-care (01) | LOC: TPT 06:00 | PROVIDERS: PCP Internal Medicine; Visit Provider Physician Assistant | DX: Z98.890 Other specified postprocedural states (principal) | CPT/HCPCS: 97110 ==

== ENCOUNTER → 2024-10-18 14:30 | Outpatient (BNVA) | payer MEDICARE, SELFPAY | PROVIDERS: PCP Internal Medicine; Visit Provider Student in an Organized Health Care Education/Training Program | DX: Z98.890 Other specified postprocedural states (principal) | CPT/HCPCS: 99213 ==

== ENCOUNTER 2024-10-30 06:00 | Outpatient (RCR) | payer MEDICARE, SELFPAY | END 2024-11-29 23:59 | disposition home or self-care (01) | LOC: TPT 06:00 | PROVIDERS: PCP Internal Medicine; Visit Provider Physician Assistant | DX: Z98.890 Other specified postprocedural states (principal) | CPT/HCPCS: 97110 ==

== ENCOUNTER 2024-11-15 12:03 | Outpatient (CLI) | payer MEDICARE, SELFPAY ==
--- NOTE | 2024-11-15 12:00 | MM_ITS ---
WS: [id number] BILATERAL 3D TOMOSYNTHESIS DIGITAL SCREENING MAMMOGRAPHY WITH CAD CLINICAL INFORMATION: SCREENING HISTORY: Screening mammogram. No current complaints. COMPARISON: 2022 TECHNIQUE: Bilateral CC and MLO views. FINDINGS: Scattered fibroglandular densities bilaterally. No suspicious focal mass, asymmetry, calcifications, or architectural distortion. No evidence of malignancy. MM/MM scr BI tomosynthesis [id number] IMPRESSION: DENSITY: There are scattered areas of fibroglandular density. BI-RADS: 1 - Negative. FOLLOW UP: 1 Year Follow-up Recommend return to annual screening mammography.
== END 2024-11-15 12:04 | disposition home or self-care (01) ==
PROVIDERS: PCP Internal Medicine; Visit Provider Internal Medicine
DX: Z12.31 Encounter for screening mammogram for malignant neoplasm of breast (principal); R92.323 Mammographic fibroglandular density, bilateral breasts
CPT/HCPCS: 77063; 77067

== ENCOUNTER 2024-11-30 06:30 | Outpatient (RCR) | payer MEDICARE, SELFPAY | END 2024-12-30 23:59 | disposition home or self-care (01) | LOC: TPT 06:30 | PROVIDERS: PCP Internal Medicine; Visit Provider Physician Assistant | DX: Z98.890 Other specified postprocedural states (principal) | CPT/HCPCS: 97110; 97164 ==

== ENCOUNTER 2024-12-31 06:30 | Outpatient (RCR) | payer MEDICARE, SELFPAY | END 2025-01-27 23:59 | disposition home or self-care (01) | LOC: TPT 06:30 | PROVIDERS: PCP Internal Medicine; Visit Provider Physician Assistant | DX: Z98.890 Other specified postprocedural states (principal) | CPT/HCPCS: 97110 ==

== ENCOUNTER 2025-01-28 06:00 | Outpatient (RCR) | payer MEDICARE, SELFPAY | END 2025-02-27 23:59 | disposition home or self-care (01) | LOC: TPT 06:00 | PROVIDERS: PCP Internal Medicine; Visit Provider Physician Assistant | DX: Z98.890 Other specified postprocedural states (principal) | CPT/HCPCS: 97110 ==

== ENCOUNTER → 2025-06-20 14:31 | Outpatient (BNVA) | payer MEDICARE, SELFPAY | PROVIDERS: PCP Internal Medicine; Visit Provider Student in an Organized Health Care Education/Training Program | DX: Z98.890 Other specified postprocedural states (principal) | CPT/HCPCS: 99213 ==